=== PATIENT | female | born 2000 | race Caucasian/White ===

== ENCOUNTER → 2019-08-29 14:23 | Outpatient (BNVA) | payer MEDICAID, SELFPAY | PROVIDERS: Family Provider Nurse Practitioner Family; PCP Nurse Practitioner Family; Visit Provider Registered Nurse | DX: Z30.41 Encounter for surveillance of contraceptive pills (principal) | CPT/HCPCS: 81025 ==

== ENCOUNTER → 2023-04-06 10:42 | Outpatient (BNVA) | payer MEDICAID, SELFPAY | PROVIDERS: Family Provider Nurse Practitioner Family; PCP Nurse Practitioner Family; Visit Provider Nurse Practitioner Women's Health | DX: Z30.9 Encounter for contraceptive management, unspecified (principal) | CPT/HCPCS: 81025 ==